=== PATIENT | female | born 1960 | race Caucasian/White ===

== ENCOUNTER 2016-07-10 19:07 | Emergency (ER) | payer OTHER ==
[2016-07-10 20:58] LABS: HEMOGLOBIN 15.7 gm/dl (12.3-15.3); RED BLOOD COUNT 4.98 M/UL (4.00-5.10); WHITE BLOOD COUNT 10.8 K/UL (4.5-11.0)
[2016-07-10 21:23] LABS: BUN/CREATININE RATIO 17 (0-10)
== END 2016-07-11 05:19 | disposition home or self-care (01) ==
LOC: ER1 19:07
PROVIDERS: Emergency Medicine
DX: S82.142A Displaced bicondylar fracture of left tibia, initial encounter for closed fracture (principal); S00.03XA Contusion of scalp, initial encounter; S00.211A Abrasion of right eyelid and periocular area, initial encounter; Z23 Encounter for immunization; V23.5XXA Motorcycle passenger injured in collision with car, pick-up truck or van in traffic accident, initial encounter; Y92.410 Unspecified street and highway as the place of occurrence of the external cause
CPT/HCPCS: 36415; 70450; 70486; 71010; 71250; 72125; 73030; 73564; 73590; 73700; 80053; 82550; 82553; 83690; 83874; 84484; 85025; 85610; 85730; 86850; 86900; 86901; 90471; 90715; 96360; 99291; G0480; J7030

== ENCOUNTER 2016-07-17 08:42 | Observation (INO) | payer OTHER ==
[~2016-07-17] VITALS: Ht 165.1 cm; Wt 68.0 kg
[2016-07-17] MEDS ORDERED: ONE DAILY WOME1 EAC1 PO (09:02)
[2016-07-17] MEDS ORDERED: LORTAB 5-325 M1 EACH PO (09:02)
[2016-07-17] MEDS ORDERED: ROBAXIN500 MG PO (09:03)
[2016-07-17 09:46] LABS: BUN/CREATININE RATIO 22 (0-10)
[2016-07-18] MEDS ORDERED: PERCOCET 5/325 T1 EA PO (13:09)
[2016-07-18] MEDS ORDERED: LOVENOX SY40 MG/0.4 SQ (13:09)
[2016-07-18] MEDS ORDERED: ZOFRAN4 MG PO (13:11)
[2016-07-18] MEDS ORDERED: COLACE 100MG C100 MG PO (13:12)
== END 2016-07-18 14:33 | disposition home or self-care (01) ==
LOC: OR 08:42 → M/S 17:04
PROVIDERS: ADMIT Orthopaedic Surgery
PROC: 0QSH04Z Reposition Left Tibia with Internal Fixation Device, Open Approach (ICD-10-PCS; principal; 2016-07-17 10:15)
DX: S82.142A Displaced bicondylar fracture of left tibia, initial encounter for closed fracture (principal); I10 Essential (primary) hypertension; K21.9 Gastro-esophageal reflux disease without esophagitis; G89.29 Other chronic pain; M19.90 Unspecified osteoarthritis, unspecified site; F17.210 Nicotine dependence, cigarettes, uncomplicated; Z87.440 Personal history of urinary (tract) infections; Z82.5 Family history of asthma and other chronic lower respiratory diseases; Z83.3 Family history of diabetes mellitus; Z79.891 Long term (current) use of opiate analgesic; Z79.899 Other long term (current) drug therapy; Z98.51 Tubal ligation status; V89.2XXA Person injured in unspecified motor-vehicle accident, traffic, initial encounter
CPT/HCPCS: 36415; 71010; 73560; 73590; 76000; 80048; 93005; 96372; 96374; 96375; 96376; C1713; G0378; J0171; J0690; J1100; J1650; J2250; J2270; J2405; J2710; J3010; J7120

== ENCOUNTER → 2021-09-09 | Outpatient (CLI) | payer OTHER ==
[~2021-09-09] MED LIST: COLACE 100MG C100 MG PO; LORTAB 5-325 M1 EACH PO; LOVENOX SY40 MG/0.4 SQ; ONE DAILY WOME1 EAC1 PO; PERCOCET 5/325 T1 EA PO; ROBAXIN500 MG PO; ZOFRAN4 MG PO
== END ==
LOC: LAB 09:52
DX: U07.1 COVID-19 (principal)
CPT/HCPCS: U0002